=== PATIENT | female | born 1945 | race Caucasian/White ===

== ENCOUNTER 2025-09-14 09:48 | Emergency (ER) | payer MEDICARE, OTHER ==
[~2025-09-14] VITALS: Ht 152.4 cm; Wt 47.1 kg
[2025-09-14] MEDS ORDERED: VENTOLIN HFA18 GM (10:28)
[2025-09-14] MEDS ORDERED: predniSONE 20 MG TAB PO ONE (10:30)
[2025-09-14] MEDS ORDERED: KETOROLAC TROMETHAMINE 15 MG/ML VIAL IM ONE (10:30)
[2025-09-14] MEDS ORDERED: HYDROCODONE/ACETA 5/325 TAB PO ONE (10:30)
[2025-09-14 10:43] LABS: BASOPHILS 1.5 % (0.1-1.2); EOSINOPHILS 2.3 % (0.7-5.8); LYMPHOCYTES 17.1 % (19.3-51.7); MCH 32.8 PG (25.6-32.2); MCHC 33.2 g/dL (32.2-35.5); MCV 98.7 fL (79.4-94.8); MONOCYTES 9.3 % (4.7-12.5); NEUTROPHILS 69.6 % (34.0-71.1); RBC 3.93 M/uL (3.93-5.22)
[2025-09-14 11:07] LABS: ALT (SGPT) 14.0 U/L (14-59); AST (SGOT) 17.0 U/L (15-37); GLOMERULAR FILTRATION RATE,EST 46.0 mL/min (>60); PROTEIN, TOTAL 6.7 g/dL (6.4-8.2); UREA NITROGEN 18.0 mg/dL (7-18)
[2025-09-14] MEDS ORDERED: NORVASC5 MG PO (11:55)
[2025-09-14] MEDS ORDERED: PREDNISONE20 MG PO (11:55)
[2025-09-14] MEDS ORDERED: AMLODIPINE BESYLATE 5 MG TAB PO ONE (12:00)
[2025-09-14] MEDS ORDERED: ASPIRIN 81 MG CHEW PO ONE (12:00)
== END 2025-09-14 12:18 | disposition home or self-care (01) ==
LOC: ED 09:48
PROVIDERS: Emergency Medicine
DX: M54.41 Lumbago with sciatica, right side (principal); I10 Essential (primary) hypertension; J44.9 Chronic obstructive pulmonary disease, unspecified
CPT/HCPCS: 36415; 70450; 80053; 85025; 96372; 99284-25; A9270; J1885; J7512